=== PATIENT | female | born 2000 | race Hispanic/Latino ===

== ENCOUNTER 2019-04-12 08:28 | Inpatient (IN) | payer OTHER ==
[~2019-04-12] VITALS: Ht 162.6 cm; Wt 67.1 kg
[2019-04-12] MEDS ORDERED: LACTATED RINGERS 1000ML 1,000 ML IV PRN (09:06)
[2019-04-12 09:23] LABS: HEMATOCRIT 34.4 % (36-48); MEAN CORPUSCULAR HEMOGLOBIN 28.7 pg (27.0-33.0); MEAN CORPUSCULAR HGB CONC 33.4 g/dL (32.0-36.0); PLATELET COUNT (AUTO) 299 K/uL (130-400); RED CELL DISTRIBUTION WIDTH 13.4 % (11.0-15.5); WHITE BLOOD COUNT (AUTO) 12.6 K/uL (4.8-10.8)
[2019-04-12] MEDS ORDERED: OXYTOCIN-LR 20 UNITS/1000 ML 1,000 ML IV ONE (09:23)
[2019-04-12] MEDS ORDERED: BENZOCAINE/LANOLIN/ALOE VERA 60 ML AEROSOL TP PRN (10:00)
[2019-04-12] MEDS ORDERED: LANOLIN 30GM OINTMENT TP PRN (10:00)
[2019-04-12] MEDS ORDERED: ACETAMINOPHEN-CODEINE 300/30MG TAB PO PRN (10:00)
[2019-04-12] MEDS ORDERED: OXYTOCIN-LR 20 UNITS/1000 ML 1,000 ML IV SCH (10:00)
[2019-04-12] MEDS ORDERED: WITCH HAZEL 1 PAD TP PRN (10:00)
[2019-04-12] MEDS ORDERED: ACETAMINOPHEN 325 MG TAB PO PRN (10:00)
[2019-04-12 11:30] VITALS: BP 116/69
[2019-04-12] MEDS ORDERED: FLU VACC QS2019-20 36MOS UP/PF 60 MCG/0.5 ML ML IM ONE (12:00)
[2019-04-12] MEDS ORDERED: FLU VACC QS2019-20 36MOS UP/PF 60 MCG/0.5 ML ML IM SCH (12:00)
[2019-04-12] MEDS: IBUPROFEN 600 MG TABLET PO PRN ×2 (12:21→19:18)
[2019-04-12] MEDS: DIPH,PERTUSS(ACELL),TET VAC/PF 0.5 ML VIAL IM SCH (12:22)
[2019-04-12 14:01] LABS: RAPID PLASMA REAGIN NONREACTIVE (NONREACTIVE)
[2019-04-12 16:45] VITALS: BP 114/75
[2019-04-12 19:45] VITALS: BP 108/68
[2019-04-12] MEDS: DOCUSATE SODIUM 100 MG CAP PO SCH (21:17)
[2019-04-12 23:46] VITALS: BP 104/65
[2019-04-13 03:42] VITALS: BP 122/79
[2019-04-13 05:23] LABS: HEMATOCRIT 30.1 % (36-48); MEAN CORPUSCULAR HEMOGLOBIN 28.7 pg (27.0-33.0); MEAN CORPUSCULAR HGB CONC 33.2 g/dL (32.0-36.0); MEAN CORPUSCULAR VOLUME 86.5 fL (80-100); PLATELET COUNT (AUTO) 252 K/uL (130-400); RED BLOOD CELL COUNT(AUTO) 3.48 MIL/uL (4.00-5.50); RED CELL DISTRIBUTION WIDTH 13.4 % (11.0-15.5); WHITE BLOOD COUNT (AUTO) 14.4 K/uL (4.8-10.8)
[2019-04-13 07:33] VITALS: BP 110/66
[2019-04-13 08:12] LABS: HEPATITIS Bs ANTIGEN SCREEN P Negative (Negative)
[2019-04-13] MEDS: DOCUSATE SODIUM 100 MG CAP PO SCH (09:13)
[2019-04-13] MEDS: IBUPROFEN 600 MG TABLET PO PRN (09:14)
[2019-04-13 11:29] VITALS: BP 115/69
[2019-04-13] MEDS: DIPH,PERTUSS(ACELL),TET VAC/PF 0.5 ML VIAL IM SCH (12:00)
--- NOTE | 2019-04-13 14:15 | NUR ---
DISCHARGE PATIENT LEFT UNIT VIA WHEELCHAIR WITH BABY IN ARMS. PERSONAL VEHICLE USED FOR TRANSPORTATION. BABY SECURE IN CARSEAT. NO COMPLAINTS OR CONCERNS ADDRESSED FROM PATIENT ON DISCHARGE.
== END 2019-04-13 14:15 | disposition home or self-care (01) | DRG 807 ==
LOC: LDH 08:28 → OBSVTOIN 08:28 → WSH 11:16 → UNDODISIN 04-13 14:15
PROVIDERS: ADMIT Obstetrics & Gynecology; ATTEND Obstetrics & Gynecology
PROC: 10E0XZZ Delivery of Products of Conception, External Approach (ICD-10-PCS; principal; 2019-04-12)
PROC: 3E02340 Introduction of Influenza Vaccine into Muscle, Percutaneous Approach (ICD-10-PCS; 2019-04-12)
PROC: 3E0234Z Introduction of Serum, Toxoid and Vaccine into Muscle, Percutaneous Approach (ICD-10-PCS; 2019-04-12)
DX: O77.0 Labor and delivery complicated by meconium in amniotic fluid (principal); Z37.0 Single live birth; Z3A.38 38 weeks gestation of pregnancy; Z23 Encounter for immunization
CPT/HCPCS: 36415; 85027; 86592; 86701; 86850; 86900; 86901; 87340; 87390; 90715; A4351; G0008; G0378; J2590; J7120